=== PATIENT | male | born 1995 | race Caucasian/White ===

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

== ENCOUNTER 2018-09-05 10:20 | Emergency (ER) | payer OTHER ==
[2018-09-05] MEDS ORDERED: IBUPROFEN 800 MG TAB PO ONE (11:11)
[2018-09-05] MEDS ORDERED: ACETAMINOPHEN 500 MG TAB PO ONE (11:11)
--- NOTE | 2018-09-05 11:13 | EDPHY ---
H & P Time Seen by Provider: 09/05/18 10:33 HPI/ROS: Chief complaint: Left shoulder injury History of present illness: 23-year-old male presents to the emergency department for left shoulder injury. He was skiing when he lost control and fell onto his shoulder. This occurred yesterday. He has had persistent pain. It makes it difficult to move the shoulder. No report of open wounds. No abnormal coolness or paresthesias in the arm. No report of trauma to other parts of the body including the head and neck. Smoking Status: Former smoker Physical Exam: General Appearance: Alert, nontoxic Eyes: PERRLA Respiratory: Lungs clear to auscultation bilaterally Cardiac: Regular rate and rhythm. Neurological: Alert and oriented x4. Strength and sensation intact including distal to his injury. Skin: No open wounds to the left shoulder. Musculoskeletal: The head is nontender. The spine is nontender. There is tenderness along the lateral aspect of the clavicle and AC joint. He can move the shoulder well. The rest of the left upper extremities unremarkable. Constitutional: Initial Vital Signs Temperature (C) 36.5 C 09/05/18 10:25 Heart Rate 92 09/05/18 10:25 Respiratory Rate 16 09/05/18 10:25 Blood Pressure 113/64 09/05/18 10:25 O2 Sat (%) 98 09/05/18 10:25 O2 Delivery Mode Room Air Allergies/Adverse Reactions: No Known Allergies Allergy (Unverified 09/05/18 10:24) Home Medications: Medication Instructions Recorded Cetirizine [ZyrTEC 10 mg (*)] 12/24/16 Vyvanse 12/24/16 Adderall 10 MG (*) 09/05/18 MDM/Departure - MDM Imaging Results: Imaging Impressions Shoulder X-Ray 09/05/18 10:46 Impression: 1. Suspect type II AC separation. 2. No acute fracture or dislocation. Imaging: I viewed and interpreted images myself Medications Given: Discontinued Medications Acetaminophen (Tylenol) 1,000 mg PO EDNOW ONE Stop: 09/05/18 11:12 Last Admin: 09/05/18 11:18 Dose: 1,000 mg Acetaminophen (Tylenol 160mg/5ml Oral Liquid) 800 mg PO EDNOW ONE Stop: 09/05/18 11:16 Last Admin: 09/05/18 11:20 Dose: Not Given Ibuprofen (Motrin) 800 mg PO EDNOW ONE Stop: 09/05/18 11:12 Last Admin: 09/05/18 11:19 Dose: 800 mg ED Course/Re-evaluation: Patient seen under the supervision of my secondary supervising physician Dr. Esa Fletcher. Patient presents for a left shoulder injury. The left upper extremity is neurovascularly intact. X-ray confirms an AC separation which is consistent with his physical exam. He is placed in a sling. Pain management is discussed. By history and physical exam no evidence of trauma to other parts of the body. He is discharged home. Referred to Orthopedics for recheck. Return precautions are given. The patient voiced understanding and agreement with plan. Differential Diagnosis: Included but not limited to sprain or strain, bony fracture, joint dislocation - Depart Disposition: Home, Routine, Self-Care Clinical Impression: AC separation Qualifiers: Encounter type: initial encounter Laterality: left Qualified Code(s): S43.102A - Unspecified dislocation of left acromioclavicular joint, initial encounter Condition: Good Instructions: Acromioclavicular Separation (ED) Additional Instructions: Follow-up with orthopedics for continued evaluation and care Use ibuprofen 600 mg 3 times a day for the next 2-3 days for pain control Ice the injury, 20 min on, 3 times daily for the next 3 days Use sling for comfort If symptoms worsen or new symptoms develop return to the emergency room for recheck Referrals: NONE *PRIMARY CARE P,. [Primary Care Provider] - As per Instructions Pelon Howe MD [Medical Doctor] - As per Instructions
[2018-09-05] MEDS ORDERED: ACETAMINOPHEN 160 MG/5 ML UDCUP PO ONE (11:15)
[2018-09-05 11:26] VITALS: BP 146/81
== END 2018-09-05 11:27 | disposition home or self-care (01) ==
DX: S43.102A Unspecified dislocation of left acromioclavicular joint, initial encounter (principal); V00.321A Fall from snow-skis, initial encounter; Y93.23 Activity, snow (alpine) (downhill) skiing, snowboarding, sledding, tobogganing and snow tubing; Z87.891 Personal history of nicotine dependence
CPT/HCPCS: A4565

== ENCOUNTER 2018-12-18 18:02 | Emergency (ER) | payer OTHER ==
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
[2018-12-18 19:24] VITALS: BP 121/76
== END 2018-12-18 19:29 | disposition home or self-care (01) ==
DX: F10.920 Alcohol use, unspecified with intoxication, uncomplicated (principal); S09.90XA Unspecified injury of head, initial encounter; W19.XXXA Unspecified fall, initial encounter; Y92.480 Sidewalk as the place of occurrence of the external cause